=== PATIENT | female | born 1960 | race Caucasian/White ===

== ENCOUNTER 2017-06-16 08:56 | Emergency (ER) | payer OTHER ==
[~2017-06-16] VITALS: Ht 154.9 cm; Wt 99.4 kg
[~2017-06-16 08:56] MED LIST: AMBIEN10 M1 PO; DOLOPHINE HCL10 MG PO; OXYCODONE30 MG PO; OXYCONTIN80 MG PO; SOMA350 M1 PO; XANAX1 MG PO
[2017-06-16 11:41] LABS: HEMATOCRIT 40.3 % (36.0-46.0); MCH 30.6 PG (29.0-34.0); MEAN PLAT.VOLUME 10.7 uM^3 (9.5-12.4); PLATELET COUNT 228 K/uL (156-360); RBC DIS.WIDTH-CV 11.2 % (11.8-14.6); RBC DIS.WIDTH-SD 34.6 % (39-53); RED BLOOD COUNT 4.74 M/uL (3.80-5.20); WHITE BLOOD COUNT 7.3 K/uL (4.1-10.2)
[2017-06-16 11:49] LABS: CHLORIDE 106 mEq/L (99-109); POTASSIUM 3.7 mEq/L (3.7-5.4); SODIUM 139 mEq/L (136-147)
[2017-06-16 11:51] LABS: GLUCOSE 100 mg/dL (70-99)
[2017-06-16 11:52] LABS: ANION GAP 9 MEQ/L (2-14)
[2017-06-16 11:54] LABS: ALKALINE PHOSPHATASE 54 IU/L (3-129)
[2017-06-16 11:55] LABS: GFR ESTIMATE (CALCULATED) > 59 mL/min/
[2017-06-16 11:56] LABS: UREA NITROGEN (BUN) 16 mg/dL (9-23)
[2017-06-16 12:00] LABS: ADD MIUA? YES; BILIRUBIN NEGATIVE; BLOOD SMALL; COLOR YELLOW ((YELLOW)); GLUCOSE (STRIP) NEGATIVE; KETONES 5; LEUKOCYTES TRACE; NITRITE NEGATIVE; PROTEIN (STRIP) 30; SPECIFIC GRAVITY 1.019 (1.000-1.030); UROBILINOGEN 0.2 MG/DL (0.2-1.0)
[2017-06-16 12:01] LABS: TROP-I INTERPRETATION NEGATIVE; TROPONIN-I < 0.01 ng/mL (0.0-0.30)
[2017-06-16 12:06] LABS: BACTERIA NONE SEEN /HPF; EPITHELIAL CELLS RARE /HPF; MUCUS TRACE /LPF; RED BLOOD CELLS 0-5 /HPF (0-5); UCUL ADDED? NO; WHITE BLOOD CELLS 0-5 /HPF (0-5)
[2017-06-16] MEDS ORDERED: ATARAX,VISTARIL50 MG PO (14:32)
[2017-06-16 15:10] LABS: TROP-I INTERPRETATION NEGATIVE; TROPONIN-I < 0.01 ng/mL (0.0-0.30)
[2017-06-16 16:07] VITALS: BP 151/90
== END 2017-06-16 16:17 | disposition home or self-care (01) ==
LOC: EME 08:56
PROVIDERS: Nurse Practitioner Family
DX: R00.2 Palpitations (principal); R10.13 Epigastric pain; K21.9 Gastro-esophageal reflux disease without esophagitis; F41.9 Anxiety disorder, unspecified; F32.9 Major depressive disorder, single episode, unspecified; Z87.891 Personal history of nicotine dependence; Z88.5 Allergy status to narcotic agent
CPT/HCPCS: 71020; 80053; 81003; 84484; 85027; 87077; 87086; 87186; 93005; 99281; 99285